=== PATIENT | male | born 1935 | race Caucasian/White ===

== ENCOUNTER 2017-07-24 11:54 | Emergency (ER) | payer MEDICARE, BC ==
[~2017-07-24] VITALS: Ht 170.2 cm; Wt 73.0 kg
[~2017-07-24 11:54] MED LIST: APIX5TAB PO; Acetaminophen PO; TAMS-3 PO; TEST200V4 IM; THYR90TA PO
[2017-07-24] MEDS ORDERED: WARF5TAB77 PO (12:16)
--- NOTE | 2017-07-24 12:38 | NUR ---
PT IS IN ROOM #2B. DR RIVERA EVALUATED THE PT.
--- NOTE | 2017-07-24 13:21 | NUR ---
PT WAS D/C TO HOME. D/C INSTRUCTIONS GIVEN TO THE PT.
[2017-07-24 13:22] VITALS: BP 136/79
== END 2017-07-24 13:24 | disposition home or self-care (01) ==
LOC: ER 11:54
DX: L03.115 Cellulitis of right lower limb (principal); I48.91 Unspecified atrial fibrillation; J45.909 Unspecified asthma, uncomplicated; E03.9 Hypothyroidism, unspecified; Z79.01 Long term (current) use of anticoagulants; Z79.899 Other long term (current) drug therapy
CPT/HCPCS: 73630; A4663